=== PATIENT | female | born 1970 | race Caucasian/White ===

== ENCOUNTER 2016-10-02 10:30 | Inpatient (IN) | payer MEDICARE, BC ==
[2016-10-02] MEDS ORDERED: SODIUM CHLORIDE 0.9% FLUSH 10 ML SOL IV SCH (10:45)
[2016-10-02] MEDS ORDERED: LACTATED RINGERS 1,000 ML IV ONE (11:30)
[2016-10-02 11:54] LABS: CALCIUM 8.1 mg/dl (8.5-10.1); POTASSIUM 3.1 mMol/L (3.5-5.1)
[2016-10-02 12:19] LABS: ABG PH 7.41 (7.35-7.45)
[2016-10-02] MEDS: SODIUM CHLORIDE 0.9% FLUSH 10 ML SOL IV SCH ×2 (12:22→20:17)
[2016-10-02] MEDS: PROCHLORPERAZINE EDISYLATE 5 MG/ML SOL IV PRN (12:29)
[2016-10-02 12:31] LABS: APPEARANCE,URINE Slightly Cloudy; BILIRUBIN,URINE 2+ (NEGATIVE); COLOR,URINE Dark yellow; GLUCOSE, URINE (UA) NEGATIVE (NEGATIVE); KETONES,URINE TRACE (NEGATIVE); LEUKOCYTE ESTERASE ,URINE NEGATIVE (NEGATIVE); NITRATE,URINE NEGATIVE (NEGATIVE); OCCULT BLOOD,URINE 2+ (NEG-TRACE); PH,URINE 6.5
[2016-10-02] MEDS ORDERED: PATIENT EDUCATION 1 MISC PRN (12:58)
[2016-10-02 13:08] LABS: BASOPHILS % (AUTO) 0 % (0-3); EOSINOPHILS % (AUTO) 0 % (0-9); HEMATOCRIT 34 % (35-47); MEAN CORPUSCULAR HGB CONC 35.9 gm/dl (32.0-36.0); MEAN CORPUSCULAR VOLUME 82 fL (81-99); MONOCYTES % (AUTO) 4.5 % (0-12); NEUTROPHILS % (AUTO) 79.9 % (37-80)
[2016-10-02 13:09] LABS: RBC,URINE 0-1 (0-3AV/HPF)
[2016-10-02 13:10] LABS: ICTOTEST,URINE POSITIVE (NEGATIVE)
[2016-10-02] MEDS ORDERED: SODIUM CHLORIDE 0.9% 100 ML 100 ML IV ONE ×2 (13:21→23:58)
[2016-10-02] MEDS ORDERED: PANTOPRAZOLE SODIUM 40 MG/10 ML PDS ONE ×2 (13:21→23:58)
[2016-10-02] MEDS: ONDANSETRON HCL 4 MG/2 ML SOL IV PRN ×2 (13:30→21:35)
[2016-10-02] MEDS: METRONIDAZOLE 500 MG (PREMIX) 500 MG/100 ML SOL IV SCH ×2 (13:33→20:16)
[2016-10-02] MEDS ORDERED: ALBUTEROL HFA 60 PUFF/INHALER INH PRN (13:37)
[2016-10-02] MEDS ORDERED: [UNRECOGNIZED DRUG - OTHER] SQ PRN (13:37)
[2016-10-02] MEDS: CIPROFLOXACIN HCL 500 MG TAB PO SCH (13:43)
[2016-10-02] MEDS ORDERED: OLANZAPINE 2.5 MG TAB PO PRN (14:30)
[2016-10-02] MEDS: SODIUM CHLORIDE 0.9% 100 ML 80 ML with PANTOPRAZOLE SODIUM 40 MG VIAL 80 MG IV SCH (14:45)
[2016-10-02] MEDS ORDERED: HYDROMORPHONE 1 MG/ML SYRINGE IV PRN (17:29)
[2016-10-02] MEDS ORDERED: LORAZEPAM 2 MG/ML SOL IV PRN (18:16)
[2016-10-02] MEDS: DIPHENHYDRAMINE 50 MG/ML SOL IV PRN (18:27)
[2016-10-02] MEDS: LACTATED RINGERS 1,000 ML IV SCH (19:13)
[2016-10-02] MEDS: LAMOTRIGINE 100 MG TAB PO SCH (20:47)
[2016-10-02] MEDS: QUETIAPINE FUMARATE 300 MG TAB PO SCH (20:47)
[2016-10-02] MEDS: HYDROMORPHONE 1 MG/ML SYRINGE IV PRN (22:55)
[2016-10-02] MEDS ORDERED: POTASSIUM CHLORIDE 2 MEQ/ML 40 MEQ, LIDOCAINE HCL 1% MDV 2 ML in SODIUM CHLORIDE 0.9% 5... IV SCH (23:05)
[2016-10-02] MEDS ORDERED: POTASSIUM CHLORIDE 2 MEQ/ML 40 MEQ, LIDOCAINE HCL 1% MDV 2 ML in SODIUM CHLORIDE 0.9% 5... IV ONE (23:47)
[2016-10-03] MEDS ORDERED: POTASSIUM CHLORIDE 2 MEQ/ML SOL IV ONE ×2 (00:03→10:07)
[2016-10-03] MEDS ORDERED: LIDOCAINE HCL 1% MPF SOL ONE ×2 (00:08→10:07)
[2016-10-03] MEDS: SODIUM CHLORIDE 0.9% 100 ML 80 ML with PANTOPRAZOLE SODIUM 40 MG VIAL 80 MG IV SCH ×3 (00:14→23:00)
[2016-10-03] MEDS: PROCHLORPERAZINE EDISYLATE 5 MG/ML SOL IV PRN ×2 (00:24→07:52)
[2016-10-03] MEDS: METRONIDAZOLE 500 MG (PREMIX) 500 MG/100 ML SOL IV SCH ×4 (01:05→21:00)
[2016-10-03] MEDS: LACTATED RINGERS 1,000 ML IV SCH ×4 (01:06→20:01)
[2016-10-03] MEDS: SODIUM CHLORIDE 0.9% FLUSH 10 ML SOL IV SCH ×3 (03:17→21:00)
[2016-10-03] MEDS ORDERED: SODIUM CHLORIDE 0.9% 100 ML 100 ML IV ONE ×2 (06:28→13:33)
[2016-10-03] MEDS ORDERED: LEVOFLOXACIN 25 MG/ML SOL IV ONE (06:28)
[2016-10-03] MEDS: LEVOFLOXACIN 25 MG/ML 500 MG in SODIUM CHLORIDE 0.9% 100 ML 100 ML IV SCH (06:44)
[2016-10-03 07:35] LABS: BASOPHILS % (AUTO) 1 % (0-3); EOSINOPHILS % (AUTO) 1 % (0-9); HEMATOCRIT 29 % (35-47); MEAN CORPUSCULAR HGB CONC 36.5 gm/dl (32.0-36.0); MEAN CORPUSCULAR VOLUME 83 fL (81-99); MONOCYTES % (AUTO) 7.2 % (0-12); NEUTROPHILS % (AUTO) 63.3 % (37-80)
[2016-10-03 07:56] LABS: ALBUMIN 2.4 gm/dl (3.4-5.0); CALCIUM 7.4 mg/dl (8.5-10.1); POTASSIUM 3.3 mMol/L (3.5-5.1)
[2016-10-03] MEDS ORDERED: POTASSIUM CHLORIDE 2 MEQ/ML 30 MEQ, LIDOCAINE HCL 1% MDV 2 ML in SODIUM CHLORIDE 0.9% 5... IV ONE (08:39)
[2016-10-03] MEDS: LORAZEPAM 2 MG/ML SOL IV PRN ×2 (09:33→23:00)
[2016-10-03] MEDS: CLONAZEPAM 0.5 MG TAB PO SCH ×2 (10:42→20:45)
[2016-10-03] MEDS: LAMOTRIGINE 100 MG TAB PO SCH ×2 (10:42→20:45)
[2016-10-03] MEDS: LAMOTRIGINE 25 MG TAB PO SCH ×2 (10:43→20:46)
[2016-10-03] MEDS: DIPHENHYDRAMINE 50 MG/ML SOL IV PRN ×2 (12:27→20:59)
[2016-10-03] MEDS ORDERED: PANTOPRAZOLE SODIUM 40 MG/10 ML PDS ONE ×2 (13:32→22:52)
[2016-10-03] MEDS: CIPROFLOXACIN HCL 500 MG TAB PO SCH (14:46)
[2016-10-03] MEDS: DEXTROSE/SALINE 0.45/KCL 20MEQ 1,000 ML/1,000 ML SOL IV SCH (20:04)
[2016-10-03] MEDS: HYDROMORPHONE 1 MG/ML SYRINGE IV PRN (20:10)
[2016-10-03] MEDS: QUETIAPINE FUMARATE 300 MG TAB PO SCH (20:46)
[2016-10-03] MEDS: TEMAZEPAM 15MG 15 MG CAP PO SCH (20:46)
[2016-10-04] MEDS: HYDROMORPHONE 1 MG/ML SYRINGE IV PRN ×3 (01:31→18:01)
[2016-10-04] MEDS: METRONIDAZOLE 500 MG (PREMIX) 500 MG/100 ML SOL IV SCH ×4 (03:25→21:10)
[2016-10-04] MEDS: SODIUM CHLORIDE 0.9% FLUSH 10 ML SOL IV SCH ×6 (03:28→20:52)
[2016-10-04] MEDS: LORAZEPAM 2 MG/ML SOL IV PRN ×3 (04:28→21:04)
[2016-10-04] MEDS ORDERED: SODIUM CHLORIDE 0.9% 100 ML 100 ML IV ONE (05:41)
[2016-10-04] MEDS ORDERED: LEVOFLOXACIN 25 MG/ML SOL IV ONE (05:41)
[2016-10-04] MEDS: DEXTROSE/SALINE 0.45/KCL 20MEQ 1,000 ML/1,000 ML SOL IV SCH ×2 (06:10→14:47)
[2016-10-04] MEDS: LEVOFLOXACIN 25 MG/ML 500 MG in SODIUM CHLORIDE 0.9% 100 ML 100 ML IV SCH (06:12)
[2016-10-04 07:15] LABS: CALCIUM 7.6 mg/dl (8.5-10.1); POTASSIUM 3.6 mMol/L (3.5-5.1)
[2016-10-04 07:16] LABS: BASOPHILS % (AUTO) 1 % (0-3); EOSINOPHILS % (AUTO) 3 % (0-9); HEMATOCRIT 28 % (35-47); MEAN CORPUSCULAR HGB CONC 35.8 gm/dl (32.0-36.0); MEAN CORPUSCULAR VOLUME 82 fL (81-99); MONOCYTES % (AUTO) 6.7 % (0-12); NEUTROPHILS % (AUTO) 54.5 % (37-80)
[2016-10-04] MEDS: PROCHLORPERAZINE EDISYLATE 5 MG/ML SOL IV PRN (07:26)
[2016-10-04] MEDS ORDERED: LORAZEPAM 2 MG/ML SOL IV PRN (08:33)
[2016-10-04] MEDS: PROCHLORPERAZINE EDISYLATE 5 MG/ML SOL IV SCH ×3 (08:51→20:57)
[2016-10-04] MEDS: SOLUMEDROL 125 MG/2 ML 125 MG/2 ML PDS IV SCH ×3 (09:47→20:52)
[2016-10-04] MEDS: SODIUM CHLORIDE 0.9% 100 ML 80 ML with PANTOPRAZOLE SODIUM 40 MG VIAL 80 MG IV SCH (11:01)
[2016-10-04] MEDS: DIPHENHYDRAMINE 50 MG/ML SOL IV PRN (17:30)
[2016-10-05] MEDS: SOLUMEDROL 125 MG/2 ML 125 MG/2 ML PDS IV SCH ×4 (02:44→21:09)
[2016-10-05] MEDS: METRONIDAZOLE 500 MG (PREMIX) 500 MG/100 ML SOL IV SCH (02:45)
[2016-10-05] MEDS: DEXTROSE/SALINE 0.45/KCL 20MEQ 1,000 ML/1,000 ML SOL IV SCH (03:04)
[2016-10-05] MEDS: LORAZEPAM 2 MG/ML SOL IV PRN ×2 (03:14→11:39)
[2016-10-05] MEDS: HYDROMORPHONE 1 MG/ML SYRINGE IV PRN (03:14)
[2016-10-05] MEDS: SODIUM CHLORIDE 0.9% FLUSH 10 ML SOL IV SCH ×4 (06:22→21:10)
[2016-10-05] MEDS ORDERED: LEVOFLOXACIN 25 MG/ML SOL IV ONE (06:31)
[2016-10-05] MEDS ORDERED: SODIUM CHLORIDE 0.9% 100 ML 100 ML IV ONE (06:32)
[2016-10-05] MEDS: LEVOFLOXACIN 25 MG/ML 500 MG in SODIUM CHLORIDE 0.9% 100 ML 100 ML IV SCH (06:40)
[2016-10-05] MEDS: PROCHLORPERAZINE EDISYLATE 5 MG/ML SOL IV SCH ×3 (08:25→21:39)
[2016-10-05] MEDS ORDERED: MORPHINE SULFATE 10 MG/ML SOL IV PRN (08:40)
[2016-10-05] MEDS ORDERED: SCOPOLAMINE 1.5MG PATCH TD SCH (08:45)
[2016-10-05] MEDS ORDERED: LIDOCAINE HCL 1% MPF SOL ONE (10:38)
[2016-10-05] MEDS: DIPHENHYDRAMINE 50 MG/ML SOL IV PRN (11:39)
[2016-10-05] MEDS: PANTOPRAZOLE SODIUM 40 MG/10 ML PDS IV SCH (12:09)
[2016-10-05] MEDS: SODIUM CHLORIDE 0.45% 1000 ML 1,000 ML with POTASSIUM CHLORIDE 2 MEQ/ML 20 MEQ IV SCH ×2 (12:10→21:56)
[2016-10-05] MEDS ORDERED: APAP/HYDROCODONE 325/5 TAB ONE ×2 (13:55→21:47)
[2016-10-05] MEDS ORDERED: CLONAZEPAM 0.5 MG TAB PO ONE (14:00)
[2016-10-05] MEDS ORDERED: LAMOTRIGINE 25 MG TAB PO ONE (14:00)
[2016-10-05] MEDS: APAP/HYDROCODONE 325/5 TAB PO PRN ×2 (14:02→21:55)
[2016-10-05] MEDS ORDERED: QUETIAPINE FUMARATE 25 MG TAB PO SCH (21:00)
[2016-10-05] MEDS ORDERED: TEMAZEPAM 15MG 15 MG CAP ONE (21:03)
[2016-10-05] MEDS: CLONAZEPAM 0.5 MG TAB PO SCH (21:10)
[2016-10-05] MEDS: LAMOTRIGINE 25 MG TAB PO SCH (21:11)
[2016-10-05] MEDS: TEMAZEPAM 15MG 15 MG CAP PO SCH (21:31)
[2016-10-05] MEDS ORDERED: POTASSIUM CHLORIDE 2 MEQ/ML SOL IV ONE (21:48)
[2016-10-06] MEDS: SOLUMEDROL 125 MG/2 ML 125 MG/2 ML PDS IV SCH ×4 (02:40→22:13)
[2016-10-06] MEDS: SODIUM CHLORIDE 0.9% FLUSH 10 ML SOL IV SCH ×4 (06:42→22:26)
[2016-10-06 07:29] LABS: BASOPHILS % (AUTO) 0 % (0-3); EOSINOPHILS % (AUTO) 0 % (0-9); HEMATOCRIT 29 % (35-47); MEAN CORPUSCULAR HGB CONC 36.6 gm/dl (32.0-36.0); MEAN CORPUSCULAR VOLUME 82 fL (81-99); MONOCYTES % (AUTO) 3.4 % (0-12); NEUTROPHILS % (AUTO) 86.3 % (37-80)
[2016-10-06 07:46] LABS: ALBUMIN 2.6 gm/dl (3.4-5.0)
[2016-10-06] MEDS ORDERED: APAP/HYDROCODONE 325/5 TAB ONE ×2 (08:46→13:16)
[2016-10-06] MEDS: PANTOPRAZOLE SODIUM 40 MG/10 ML PDS IV SCH (08:52)
[2016-10-06] MEDS: APAP/HYDROCODONE 325/5 TAB PO PRN ×2 (08:52→13:18)
[2016-10-06] MEDS: LAMOTRIGINE 25 MG TAB PO SCH ×2 (08:52→20:12)
[2016-10-06] MEDS: CLONAZEPAM 0.5 MG TAB PO SCH ×2 (08:52→20:12)
[2016-10-06] MEDS ORDERED: FUROSEMIDE 20mg SOL IV SCH (10:00)
[2016-10-06] MEDS: PROCHLORPERAZINE EDISYLATE 5 MG/ML SOL IV SCH (10:10)
[2016-10-06] MEDS ORDERED: PROCHLORPERAZINE EDISYLATE 5 MG/ML SOL IV PRN (10:10)
[2016-10-06] MEDS: SODIUM CHLORIDE 0.45% 1000 ML 1,000 ML with POTASSIUM CHLORIDE 2 MEQ/ML 20 MEQ IV SCH (10:11)
[2016-10-06 12:33] LABS: APPEARANCE,URINE Clear; BILIRUBIN,URINE NEGATIVE (NEGATIVE); COLOR,URINE Yellow; GLUCOSE, URINE (UA) NEGATIVE (NEGATIVE); KETONES,URINE NEGATIVE (NEGATIVE); LEUKOCYTE ESTERASE ,URINE NEGATIVE (NEGATIVE); NITRATE,URINE NEGATIVE (NEGATIVE); OCCULT BLOOD,URINE NEGATIVE (NEG-TRACE); PH,URINE 5.5; UROBILINOGEN,URINE 0.2 (0.2-1.0 EU)
[2016-10-06 13:02] LABS: RBC,URINE 0-2 (0-3AV/HPF); WBC,URINE 0-2 (0-5AV/HPF)
[2016-10-06] MEDS: ALBUTEROL/IPRATROPIUM 1 VIAL SOL INH SCH ×2 (13:18→18:11)
[2016-10-06] MEDS ORDERED: TEMAZEPAM 15MG 15 MG CAP ONE (20:09)
[2016-10-06] MEDS: TEMAZEPAM 15MG 15 MG CAP PO SCH (20:13)
[2016-10-06] MEDS: LAMOTRIGINE 100 MG TAB PO SCH (20:15)
[2016-10-06] MEDS ORDERED: QUETIAPINE FUMARATE 300 MG TAB PO SCH (21:00)
[2016-10-06] MEDS: LORAZEPAM 2 MG/ML SOL IV PRN (22:21)
[2016-10-07] MEDS: ALBUTEROL/IPRATROPIUM 1 VIAL SOL INH SCH ×2 (01:14→06:30)
[2016-10-07] MEDS: SODIUM CHLORIDE 0.9% FLUSH 10 ML SOL IV SCH ×2 (01:15→09:33)
[2016-10-07] MEDS: SOLUMEDROL 125 MG/2 ML 125 MG/2 ML PDS IV SCH (05:55)
[2016-10-07 06:12] VITALS: PULSE 58
[2016-10-07 07:12] LABS: BASOPHILS % (AUTO) 0 % (0-3); EOSINOPHILS % (AUTO) 0 % (0-9); HEMATOCRIT 31 % (35-47); MEAN CORPUSCULAR HGB CONC 37.6 gm/dl (32.0-36.0); MONOCYTES % (AUTO) 3.8 % (0-12); NEUTROPHILS % (AUTO) 87.4 % (37-80)
[2016-10-07 07:32] LABS: ALBUMIN 2.8 gm/dl (3.4-5.0); CALCIUM 7.9 mg/dl (8.5-10.1); POTASSIUM 3.4 mMol/L (3.5-5.1)
[2016-10-07 07:37] LABS: MEAN CORPUSCULAR VOLUME 81 fL (81-99)
[2016-10-07 07:38] LABS: ANISOCYTOSIS SLIGHT
[2016-10-07] MEDS ORDERED: PREDNISONE 20 MG TAB PO SCH (09:00)
[2016-10-07] MEDS ORDERED: LORAZEPAM 0.5 MG TAB PO PRN (09:11)
[2016-10-07] MEDS ORDERED: PROCHLORPERAZINE MALEATE 5 MG TAB PO PRN (09:15)
[2016-10-07 09:50] VITALS: BP 137/84; RESP 24; TEMP 97.6; O2SAT 97
[2016-10-07] MEDS: LAMOTRIGINE 25 MG TAB PO SCH (10:28)
[2016-10-07] MEDS: LAMOTRIGINE 100 MG TAB PO SCH (10:29)
== END 2016-10-07 11:45 | disposition home or self-care (01) | DRG 392 ==
LOC: ACUTE CARE 10:58
PROVIDERS: ADMIT Emergency Medicine; ATTEND Emergency Medicine
DX: K52.9 Noninfective gastroenteritis and colitis, unspecified (principal); E10.9 Type 1 diabetes mellitus without complications; Z87.898 Personal history of other specified conditions; R82.90 Unspecified abnormal findings in urine; E66.9 Obesity, unspecified; R10.11 Right upper quadrant pain; R06.02 Shortness of breath; F31.9 Bipolar disorder, unspecified; R74.0 Nonspecific elevation of levels of transaminase and lactic acid dehydrogenase [LDH]; M25.511 Pain in right shoulder; G89.29 Other chronic pain; K59.09 Other constipation
CPT/HCPCS: 36415; 36600; 71020; 74176; 80048; 80053; 81001; 82803; 82962; 84132; 85025; 87088; 94640; 99070; J0780; J1200; J1940; J1956; J2060; J2270; J2405; J2930; J3480; J7620; A4450; J1170; J2001

== ENCOUNTER 2017-01-08 22:11 | Emergency (ER) | payer MEDICARE, BC ==
[2017-01-08 22:11] VITALS: O2SAT 97
[2017-01-08 22:38] VITALS: BP 145/77; PULSE 95; RESP 20; TEMP 98.9
[2017-01-08] MEDS: HYDROMORPHONE HCL 2 MG/ML SOL IM ONE (22:45)
[2017-01-08] MEDS: KETOROLAC TROMETHAMINE 30 MG/ML SOL IM ONE (22:46)
[2017-01-08] MEDS ORDERED: HYDROMORPHONE HCL 2 MG/ML SOL ONE (22:48)
[2017-01-08] MEDS ORDERED: KETOROLAC TROMETHAMINE 30 MG/ML SOL ONE (22:48)
== END 2017-01-08 23:30 | disposition home or self-care (01) | DRG 948 ==
LOC: ED 22:11
DX: G89.18 Other acute postprocedural pain (principal); M25.511 Pain in right shoulder; Z98.890 Other specified postprocedural states
CPT/HCPCS: 99283; J1170; J1885

== ENCOUNTER 2017-08-11 12:56 | Outpatient (CLI) | payer MEDICARE, BC | END 2017-08-11 12:57 | disposition home or self-care (01) | DRG 554 | LOC: CONVCARE 12:56 | PROVIDERS: ATTEND Orthopaedic Surgery | DX: M16.11 Unilateral primary osteoarthritis, right hip (principal); M65.322 Trigger finger, left index finger | CPT/HCPCS: 73502 ==

== ENCOUNTER 2017-08-31 08:27 | Emergency (ER) | payer MEDICARE, BC ==
[2017-08-31 08:56] VITALS: RESP 16; TEMP 97.5
[2017-08-31 09:18] LABS: HEMATOCRIT 35 % (35-47); HEMOGLOBIN 11.8 gm/dl (12.0-15.5); MEAN CORPUSCULAR HEMOGLOBIN 28.8 pg (27.0-32.0); MEAN CORPUSCULAR VOLUME 85 fL (81-99)
[2017-08-31 09:53] LABS: NEUTROPHILS % (MANUAL) 51 % (37-80)
[2017-08-31 09:54] LABS: BAND NEUTROPHILS % (MANUAL) 0 %; BASOPHILS % (MANUAL) 0 % (0-3); EOSINOPHILS % (MANUAL) 4 % (0-9); LYMPHOCYTES % (MANUAL) 40 % (10-50); MONOCYTES % (MANUAL) 5 % (0-12); NORMAL RBCS NORMAL RBCS
[2017-08-31 09:58] VITALS: BP 102/70; PULSE 99; O2SAT 99
== END 2017-08-31 09:44 | disposition home or self-care (01) | DRG 916 ==
LOC: ED 08:27
DX: T78.40XA Allergy, unspecified, initial encounter (principal); R06.02 Shortness of breath
CPT/HCPCS: 36415; 85007; 85027; 99282

== ENCOUNTER 2017-09-08 07:58 | Day surgery (SDC) | payer MEDICARE, BC ==
[2017-09-08] MEDS ORDERED: LIDOCAINE HCL 1% MPF 30 SOL ONE ×2 (08:04→08:42)
[2017-09-08] MEDS ORDERED: ONDANSETRON HCL 4 MG/2 ML SOL ONE (08:04)
[2017-09-08] MEDS ORDERED: PROPOFOL 500 MG/50 ML EMU IV ONE (08:04)
[2017-09-08] MEDS ORDERED: MIDAZOLAM 2 MG/2 ML SOL ONE (08:04)
[2017-09-08] MEDS ORDERED: FENTANYL 100MCG/2ML SOL ONE (08:05)
[2017-09-08] MEDS ORDERED: CEFAZOLIN SODIUM 1 GM PDS ONE (09:28)
[2017-09-08 10:13] VITALS: TEMP 97.9
[2017-09-08 10:33] VITALS: PULSE 93
[2017-09-08 10:39] VITALS: BP 111/84; RESP 14; O2SAT 99
== END 2017-09-08 11:15 | disposition home or self-care (01) | DRG 558 ==
LOC: SURG 07:58
PROVIDERS: ATTEND Orthopaedic Surgery
DX: M65.322 Trigger finger, left index finger (principal); E10.8 Type 1 diabetes mellitus with unspecified complications; Z79.4 Long term (current) use of insulin
CPT/HCPCS: 82962; J0690; J2250; J2405; J3010; A6402; J2001; J2704